=== PATIENT | female | born 1995 | race Caucasian/White ===

== ENCOUNTER 2017-03-26 19:21 | Emergency (ER) | payer SELFPAY ==
[~2017-03-26] VITALS: Ht 152.4 cm; Wt 50.5 kg
[2017-03-26 19:31] VITALS: BP 110/73
[2017-03-26] MEDS ORDERED: DEXAMETHASONE 4 MG TABLET PO STA (20:23)
[2017-03-26] MEDS ORDERED: IBUPROFEN 200 MG TABLET PO ONE (20:30)
[2017-03-26] MEDS ORDERED: DEXAMETHASONE 4 MG TABLET ONE (20:39)
[2017-03-26] MEDS ORDERED: IBUPROFEN 200 MG TABLET ONE (20:39)
[2017-03-26] MEDS ORDERED: DEXAMETHASONE 4 MG TABLET PO ONE (21:30)
== END 2017-03-26 20:51 | disposition home or self-care (01) ==
LOC: ED 20:01
DX: J02.9 Acute pharyngitis, unspecified (principal); J20.9 Acute bronchitis, unspecified
CPT/HCPCS: 71020; 99284

== ENCOUNTER 2018-08-01 22:00 | Emergency (ER) | payer MEDICAID ==
[~2018-08-01] VITALS: Ht 152.4 cm; Wt 58.5 kg
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
[2018-08-01] MEDS ORDERED: ACETAMINOPHEN 500 MG TABLET ONE (22:28)
[2018-08-01] MEDS ORDERED: ACETAMINOPHEN 500 MG TABLET PO ONE (22:30)
--- NOTE | 2018-08-01 22:42 | NUR ---
urine sample taken to lab
[2018-08-01 22:48] LABS: ALBUMIN 3.6 g/dL (3.4-5.0); ANION GAP 7 mmol/L (5-15); CALCIUM 8.7 mg/dL (8.5-10.1); CHLORIDE 110 mmol/L (98-107); CREATININE 0.64 mg/dL (0.55-1.02)
[2018-08-01 22:52] LABS: MICROSCOPIC NOT IND
[2018-08-01 22:53] LABS: BASOPHILS # (AUTO) 0.04 x10^3/uL (0-0.3); BASOPHILS % (AUTO) 0 % (0-1); EOSINOPHILS # (AUTO) 0.16 x10^3/uL (0-0.8); EOSINOPHILS % (AUTO) 2 % (1-7); LYMPHOCYTES # (AUTO) 2.08 x10^3/uL (1-6.1); LYMPHOCYTES % (AUTO) 21 % (22-44); MD NO; MEAN CORPUSCULAR HGB CONC 34.7 g/dL (32.4-35.8); MEAN CORPUSCULAR VOLUME 95.1 fL (80-100); MONOCYTES % (AUTO) 7 % (2-9); NEUTROPHILS # (AUTO) 6.78 x10^3/uL (1.8-8.0); NEUTROPHILS % (AUTO) 69 % (42-75); PLATELET COUNT 296 x10^3/uL (130-400); RED CELL DISTRIBUTION WIDTH 12.2 % (9.6-15.2)
[2018-08-01 23:05] LABS: CULTURE INDICATED? NO
[2018-08-02 00:07] VITALS: BP 97/55
--- NOTE | 2018-08-02 00:08 | NUR ---
PT SITTING UP ON GURNEY USING CELL PHONE, NAD, MONITORS IN PLACE, SIDERAILS UP X2, CALL LIGHT WITHIN REACH. AWAITING ULTRASOUND RESULT
== END 2018-08-02 01:06 | disposition home or self-care (01) ==
LOC: ED 22:56
DX: O20.9 Hemorrhage in early pregnancy, unspecified (principal); R10.32 Left lower quadrant pain; Z3A.11 11 weeks gestation of pregnancy; Z87.891 Personal history of nicotine dependence
CPT/HCPCS: 36415; 76801; 80048; 81003; 82040; 84702; 85025; 99284